=== PATIENT | female | born 1935 | race Caucasian/White ===

== ENCOUNTER → 2017-04-12 | Outpatient (CLI) | payer MEDICARE, OTHER ==
[~2017-04-12] VITALS: Ht 152.4 cm; Wt 63.5 kg
[~2017-04-12] MED LIST: ASPIR-LOW81 MG PO; B-122500 MCG SL; B12 PO; CALCITRIOL0.25 MCG PO; CALCIUM 600 +1 EAC4 PO; CLARITIN 10MG T10 MG PO; CLONIDINE HCL0.2 MG PO; ELIQUIS 5 MG TAB5 MG PO; ELIQUIS2.5 MG PO; HYDRALAZINE HCL50 MG PO; HYDROXYZINE HCL25 MG PO; HYDROXYZINE PAM25 MG PO; IMDUR ER TAB 3030 MG PO; ISORDIL TAB 3030 MG PO; LIPITOR TAB 2020 MG PO; LORATADINE10 MG PO; MULTAQ400 MG PO; NORVASC 5 MG TAB5 MG PO; PAROXETINE HCL10 MG PO; PAXIL10 MG PO; PERIDEX15 ML PO; SIMVASTATIN40 MG PO; SOTALOL120 MG PO; TENORMIN 25 MG25 MG PO; TRAMADOL HCL50 MG PO; VIT D PO; VITAMIN D250000 UNIT PO
== END ==
LOC: OPSV 09:41
DX: M81.0 Age-related osteoporosis without current pathological fracture (principal)
CPT/HCPCS: 96372

== ENCOUNTER 2017-05-16 11:52 | Inpatient (IN) | payer MEDICARE, OTHER ==
[~2017-05-16] VITALS: Ht 152.4 cm; Wt 68.0 kg
[2017-05-16 12:53] LABS: HEMOGLOBIN 15.6 gm/dl (12.3-15.3); RED BLOOD COUNT 5.34 M/UL (4.00-5.10)
[2017-05-16] MEDS ORDERED: TENORMIN 25 MG25 MG PO (20:52)
[2017-05-16] MEDS ORDERED: PAXIL10 MG PO (20:53)
[2017-05-16] MEDS ORDERED: ELIQUIS 5 MG TAB5 MG PO (20:53)
[2017-05-16] MEDS ORDERED: NORVASC 5 MG TAB5 MG PO (20:54)
[2017-05-16] MEDS ORDERED: HYDROXYZINE PAM25 MG PO (20:54)
[2017-05-16] MEDS ORDERED: CALCITRIOL0.25 MCG PO ×2 (20:55→20:56)
[2017-05-16] MEDS ORDERED: SIMVASTATIN40 MG PO (20:57)
[2017-05-16] MEDS ORDERED: CLONIDINE HCL0.2 MG PO (20:57)
[2017-05-16] MEDS ORDERED: TRAMADOL HCL50 MG PO (20:57)
[2017-05-16] MEDS ORDERED: VITAMIN D250000 UNIT PO (20:58)
[2017-05-16] MEDS ORDERED: ASPIR-LOW81 MG PO (20:58)
[2017-05-16] MEDS ORDERED: LORATADINE10 MG PO (21:01)
[2017-05-16] MEDS ORDERED: CALCIUM 600 +1 EAC4 PO (21:01)
[2017-05-16] MEDS ORDERED: B-122500 MCG SL (21:03)
[2017-05-16] MEDS ORDERED: PERIDEX15 ML PO (21:05)
[2017-05-18 03:52] LABS: WHITE BLOOD COUNT 9.1 K/UL (4.5-11.0)
[2017-05-18 03:55] LABS: RED BLOOD COUNT 4.47 M/UL (4.00-5.10)
[2017-05-18] MEDS ORDERED: LIPITOR TAB 2020 MG PO (10:13)
[2017-05-18] MEDS ORDERED: MULTAQ400 MG PO (10:17)
[2017-05-18] MEDS ORDERED: HYDRALAZINE HCL50 MG PO (10:19)
[2017-05-18] MEDS ORDERED: IMDUR ER TAB 3030 MG PO (10:21)
[2017-06-30] MEDS ORDERED: LIPITOR TAB 2020 MG PO (07:51)
[2017-06-30] MEDS ORDERED: B12 PO (07:52)
[2017-06-30] MEDS ORDERED: CALCIUM 600 +1 EAC4 PO (07:53)
[2017-06-30] MEDS ORDERED: CALCITRIOL0.25 MCG PO (07:53)
[2017-06-30] MEDS ORDERED: B-122500 MCG SL (07:54)
[2017-06-30] MEDS ORDERED: ELIQUIS2.5 MG PO (07:55)
[2017-06-30] MEDS ORDERED: HYDRALAZINE HCL50 MG PO (07:55)
[2017-06-30] MEDS ORDERED: HYDROXYZINE HCL25 MG PO (07:56)
[2017-06-30] MEDS ORDERED: ISORDIL TAB 3030 MG PO (07:56)
[2017-06-30] MEDS ORDERED: PAROXETINE HCL10 MG PO (07:57)
[2017-06-30] MEDS ORDERED: CLARITIN 10MG T10 MG PO (07:57)
[2017-06-30] MEDS ORDERED: VIT D PO (07:58)
[2017-06-30] MEDS ORDERED: TRAMADOL HCL50 MG PO (07:58)
[2017-06-30] MEDS ORDERED: SOTALOL120 MG PO (12:10)
== END 2017-05-18 14:56 | disposition home or self-care (01) | DRG 274 ==
LOC: ER1 11:52 → ZEROF 15:14 → MED SURG 4 15:14 → CCU 05-17 15:48
PROVIDERS: Family Medicine; ADMIT Family Medicine
PROC: 02583ZZ Destruction of Conduction Mechanism, Percutaneous Approach (ICD-10-PCS; principal; 2017-05-17)
PROC: 5A2204Z Restoration of Cardiac Rhythm, Single (ICD-10-PCS; 2017-05-17)
PROC: 4A023FZ Measurement of Cardiac Rhythm, Percutaneous Approach (ICD-10-PCS; 2017-05-17)
PROC: 4A0234Z Measurement of Cardiac Electrical Activity, Percutaneous Approach (ICD-10-PCS; 2017-05-17)
PROC: 02K83ZZ Map Conduction Mechanism, Percutaneous Approach (ICD-10-PCS; 2017-05-17)
DX: I48.92 Unspecified atrial flutter (principal); I13.0 Hypertensive heart and chronic kidney disease with heart failure and stage 1 through stage 4 chronic kidney disease, or unspecified chronic kidney disease; I50.22 Chronic systolic (congestive) heart failure; I48.0 Paroxysmal atrial fibrillation; N18.3 Chronic kidney disease, stage 3 (moderate); I42.0 Dilated cardiomyopathy; I27.2 Other secondary pulmonary hypertension; E78.5 Hyperlipidemia, unspecified; I08.3 Combined rheumatic disorders of mitral, aortic and tricuspid valves; M81.0 Age-related osteoporosis without current pathological fracture; E53.8 Deficiency of other specified B group vitamins; E55.9 Vitamin D deficiency, unspecified; M19.90 Unspecified osteoarthritis, unspecified site; K59.09 Other constipation; G89.29 Other chronic pain; F32.9 Major depressive disorder, single episode, unspecified; F41.9 Anxiety disorder, unspecified; Z87.891 Personal history of nicotine dependence; Z79.01 Long term (current) use of anticoagulants; Z79.82 Long term (current) use of aspirin; Z79.83 Long term (current) use of bisphosphonates; Z79.899 Other long term (current) drug therapy; Z88.5 Allergy status to narcotic agent; Z88.0 Allergy status to penicillin; Z88.8 Allergy status to other drugs, medicaments and biological substances
CPT/HCPCS: ECHO; 36415; 71010; 80048; 80053; 82550; 82553; 83874; 84439; 84443; 84484; 85025; 85027; 85610; 92960; 93005; 93306; 93609; 93621; 96374; 99152; 99153; 99285; C1730; C1733; C1766; J1644; J2250; J3010; J7030